=== PATIENT | male | born 1950 | race Caucasian/White ===

== ENCOUNTER 2023-06-19 17:52 | Emergency (ER) | payer MEDICARE, BC ==
[~2023-06-19] VITALS: Ht 182.9 cm; Wt 81.7 kg
--- OUTSIDE RECORDS SUMMARY | ~2023-06-19 | XMS | Continuity of Care Document ---
Demographics + + + | Address | [address] | | | [place] [address] | + + + | Preferred Language | Unknown | + + + | Marital Status | Polygamous | + + + | Church Affiliation | Unknown | + + + | Race | White | + + + | Ethnic Group | Unknown | + + + Author + + + | Author | [facility] | + + + | Organization | [facility] | + + + | Address | [address] | | | [place] [address] | + + + | Phone | | + + + Care Team Providers + + + + | Care Quantitative Analyst Developer Name | Role | Phone | + + + + Unavailable | Unavailable | + + + + Allergies No information. Encounters No information. Functional Status No information. Immunizations No information. Medications No information. Problems + + + + | date | description | facility | + + + + | 2023-05-22 11:21 | BILATERAL PRIMARY | [facility] | | | OSTEOARTHRITIS OF KNEE | | + + + + | 2023-05-22 11:21 | PAIN IN RIGHT KNEE | [facility] | + + + + | 2023-05-22 11:21 | PAIN IN LEFT KNEE | [facility] | + + + + Procedures No information. Results/Labs No information. Social History No information. Vital Signs No information."
--- OUTSIDE RECORDS SUMMARY | ~2023-06-19 | XMS | Continuity of Care Document ---
Demographics + + + | Address | [address] | | | [place] [address] | + + + | Preferred Language | Unknown | + + + | Marital Status | Polygamous | + + + | Catholic Affiliation | Unknown | + + + | Race | White | + + + | Ethnic Group | Unknown | + + + Author + + + | Author | [facility] | + + + | Organization | [facility] | + + + | Address | [address] | | | [place] [address] | + + + | Phone | | + + + Care Team Providers + + + + | Care Health And Safety Inspector Name | Role | Phone | + [...]
[2023-06-19] MEDS ORDERED: ASPIRIN81 MG PO (18:13)
[2023-06-19] MEDS ORDERED: MUPIROCIN22 GM TOP (18:14)
[2023-06-19 20:28] VITALS: BP 147/92
== END 2023-06-19 20:30 | disposition home or self-care (01) ==
LOC: ED 17:52
DX: N99.820 Postprocedural hemorrhage of a genitourinary system organ or structure following a genitourinary system procedure (principal); Y83.9 Surgical procedure, unspecified as the cause of abnormal reaction of the patient, or of later complication, without mention of misadventure at the time of the procedure; Z79.899 Other long term (current) drug therapy; Z79.82 Long term (current) use of aspirin
CPT/HCPCS: 12001; 99283-25